=== PATIENT | female | born 1995 | race Hispanic/Latino ===

== ENCOUNTER 2024-03-26 21:23 | Emergency (ER) | payer MEDICAID ==
[~2024-03-26] VITALS: Ht 160 cm; Wt 83.0 kg
[2024-03-26] MEDS: acetaMINOPHEN 500 MG TABLET PO ONE (22:55)
--- NOTE | 2024-03-26 23:06 | ERN ---
ED Note History of Present Illness Stated Complaint: C/O PAIN TO RT ANKLE; X 2 WKS Chief Complaint: Ankle Problem Time Seen by MD: 21:32 Time Seen by Midlevel: 21:31 Dictation: The patient is a 29-year-old female with no known medical history who presents to the emergency department with complaints of right ankle pain onset two weeks ago after she stopped into a hole in the ground. Patient reports she was seen and was told she had an ankle fracture but has not follow up with Orthopedic. Patient reports she had a splint but removed it because he got dirty. Denies any recent re-injury. Patient does report being 26 weeks . Denies any abdominal pain, nausea or vomiting, vaginal bleeding or discharge. G3A2. Patient of Dr.Ruben Aponte. Allergies: Coded Allergies: No Known Allergies (Unverified Allergy, Unknown, 03/26/24) Past Medical History Past Medical History: No Pertinent History Surgical History: None RN Note Reviewed/Agreed w/PFSH: Yes Review of System Dictation Constitutional: Negative for fever,chills, and weight loss Eyes: Negative for injury, pain,redness, and discharge ENT: Negative for injury,pain or swelling Cardiovascular: Negative for chest pain, palpitations, and edema Respiratory: Negative for shortness of breath, cough, and wheezing, Abdomen/GI: Negative for abdominal pain, nausea, vomiting, diarrhea, and constipation Back: Negative for injury and pain : Negative for injury, bleeding and discharge MS/Extremity: Negative for injury and deformity positive for right ankle pain Skin: Negative for rash, and discoloration Neuro: Negative for headache, weakness, numbness, tingling, and seizure Psych: Negative for suicide ideation, homicidal ideation, and hallucinations Initial Vital Sign VS Vital Signs Date Time Temp Pulse Resp B/P (MAP) Pulse Ox O2 Delivery O2 Flow Rate FiO2 03/26/24 21:27 99.1 91 20 121/73 Room Air 03/26/24 22:56 98 0 21 Physical Exam Dictation Vital Signs reviewed General Appearance: Alert, oriented x 3, no acute distress, well developed, nourished. Head and Face: non-traumatic. Eyes: PERRL, pink conjunctivas, eyelid no trauma, anterior chamber with arcus senilis. Ears: Pinnas intact and no signs of trauma or erythema ear canals clear and no discharge TM no erythema Nose: No discharge, no bleeding. Oropharynx: Mouth normal, tongue pink. pharynx clear,no erythema, tonsils no exudates, no abscesses noted, mucous membrane moist Neck: Supple, non-tender, no thyromegaly, no masses, no JVD, no bruits Breast:Deferred Chest:No tenderness, no crepitus, no paradoxical movement, no retractions Lungs:Clear, well-ventilated, symmetric, no rales, no wheezing, no rhonchi, no stridor, good breath sounds bilaterally Heart: Regular rate, regular rhythm, no murmur, no gallops Vascular: Dorsalis pedis 3+ bilaterally posterior tibialis 3+ bilaterally Abdomen: Soft, positive bowel sounds, nondistended, no guarding, nontender, no rebound, no masses no hepatomegaly, no splenomegaly, no Palomo's sign, no hernias. Rectal: Deferred Genital: Deferred Neurological: Normal speech, motor function intact, sensory function intact Musculoskeletal: Neck nontender, full range of motion, back nontender, full range of motion, Extremities: nontender, full range of motion , right ankle tenderness, mild swelling, cap refill less than 2 seconds, no deformity Skin: Color pink, dry, no turgor, no rash, no lacerations, no abrasions, no contusions. Lymphatic: Deferred Results (Laboratory/Radiology) Laboratory/Radiology REASON: pain, swelling ORDERING PHYSICIAN: TANA BERTRAND PROCEDURE: [id number] - ANKLE COMP 3VWS RT ANKLE COMP 3VWS RT HISTORY: Pain and swelling COMPARISON: None TECHNIQUE: 3 images of right ankle were obtained. FINDINGS: Nondisplaced fracture is seen involving the distal fibula. Soft tissue swelling is seen. No dislocation is seen. IMPRESSION: 1. Findings as described above. Labs Reviewed?: Yes ED Course ED Course Orders Procedure Category Date Status Time Ankle Comp 3vws Rt RAD 03/26/24 Resulted 21:46 Acetaminophen 500mg PHA 03/26/24 Complete Tab (Tylenol 500mg T 22:00 *Nursing CPOE 03/26/24 Transmitted Communication: 21:56 Posterior Ankle Splint [email or web address] 03/26/24 In Process 23:42 Current Medications Medications (Trade) Dose Ordered Sig/Ambrosio Route PRN Reason Start Time Stop Time Status Last Admin Dose Admin Acetaminophen (TYLenol 500MG TAB) 1,000 mg ONCE ONCE PO 03/26/24 22:00 03/26/24 22:01 DC 03/26/24 22:55 Vital Signs Date Time Temp Pulse Resp B/P (MAP) Pulse Ox O2 Delivery O2 Flow Rate FiO2 03/26/24 22:56 84 18 126/84 98 Room Air* 0 21 03/26/24 21:27 99.1 91 20 121/73 Room Air Medical Decision Making MDM The patient is a 29-year-old female with no known medical history who presents to the emergency department with complaints of right ankle pain onset two weeks ago after she stopped into a hole in the ground. Patient reports she was seen and was told she had an ankle fracture but has not follow up with Orthopedic. Patient reports she had a splint but removed it because he got dirty. Denies any recent re-injury. Patient does report being 26 weeks . Denies any abdominal pain, nausea or vomiting, vaginal bleeding or discharge. G3A2. Patient of Dr.Ruben Aponte. Ankle x-ray showed distal nondisplaced fibular fracture. Patient will be splinted and instructed to follow up with Orthopedic. Foot continues neurovascular intact Patient denies any OB complaints. Discussed with the patient the possibility of going to L and D for observation. At this time patient refuses to go to L&D. FTH 156 Differential diagnosis: Ankle fracture, ankle sprain, ankle contusion Need for hospitalization: Patient does not meet criteria for hospitalization. There are no social concerns with this patient. DX & DISP Disposition: Discharge Departure Impression: Primary Impression: Fracture of fibula, distal, closed Additional Impression: Condition: Stable Additional Instructions: Please follow up with Orthopedic as soon as possible. Please follow up with your OBGYN. If symptoms worsen please return to ER. FOLLOW-UP WITH PRIMARY CARE PROVIDER IN 1 TO 2 DAYS. TAKE MEDICATIONS DIRECTED HERE IN THE EMERGENCY ROOM. OKAY TO CONTINUE HOME MEDICATIONS UNLESS OTHERWISE DISCUSSED DURING YOUR VISIT IN THE EMERGENCY ROOM TODAY. RETURN TO YOUR NEAREST EMERGENCY ROOM IF SYMPTOMS WORSEN OR IF THERE IS NO IMPROVEMENT. CALL 911 IF YOU NEED IMMEDIATE ASSISTANCE. TAKE TYLENOL [id number] NEEDED AND IF NO CONTRAINDICATIONS ARE PRESENT. INCREASE ORAL HYDRATION. A WOUND CULTURE OR URINE CULTURE WAS ORDERED HERE IN THE EMERGENCY ROOM DEPARTMENT PLEASE FOLLOW-UP WITH PRIMARY CARE PROVIDER AND ADVISE THEM TO GET REPEAT PORTS FROM OUR FACILITY. IF YOU HAD ANY HELEN WRAP/SPLINTS THAT WERE APPLIED HERE, PLEA SE DO NOT REMOVE THEM UNTIL YOU SEE YOUR PRIMARY CARE OR SPECIALTY. Referrals: SELF,REFERRAL (PCP) LUPE FOLEY MD Time of Disposition: 00:14 I have reviewed the case, and I agree with, Diagnosis and Plan TANA BERTRAND [facility] Mar 26, 2024 23:06
--- NOTE | 2024-03-26 23:17 | NUR ---
Note [email or web address] in EDM - 03/26/24 at 2319 by [email or web address] SOC NEUROTELE EVALUATED COMPLETED, PER SOC ITS POSSIBLE SYMPTOMS WERE RELATED TO HYPERTENSIVE EPISODE. SOC STATES THEY WILL MAKE A NOTE ON THE CHART WITH FURTHER RECOMMENDATIONS, BUT NO DEFECITS NOTED AT THIS TIME
[2024-03-26 23:32] VITALS: TEMP 98.6
--- NOTE | 2024-03-26 23:38 | HMCIMG ---
ANKLE COMP 3VWS RT HISTORY: Pain and swelling COMPARISON: None TECHNIQUE: 3 images of right ankle were obtained. FINDINGS: Nondisplaced fracture is seen involving the distal fibula. Soft tissue swelling is seen. No dislocation is seen. IMPRESSION: 1. Findings as described above.
--- NOTE | 2024-03-27 00:10 | NUR ---
SHORT POSTERIOR SPLINT TO RIGHT ANKLE.
--- NOTE | 2024-03-27 00:15 | NUR ---
HEART TONES 156.
[2024-03-27 00:16] VITALS: BP 119/65; PULSE 88; RESP 18; TEMP 98.7; O2SAT 100
== END 2024-03-27 00:29 | disposition home or self-care (01) ==
LOC: EDH 21:23
DX: O9A.212 Injury, poisoning and certain other consequences of external causes complicating pregnancy, second trimester (principal); S82.831A Other fracture of upper and lower end of right fibula, initial encounter for closed fracture; Z3A.26 26 weeks gestation of pregnancy; W17.2XXA Fall into hole, initial encounter; Y93.89 Activity, other specified; Y92.89 Other specified places as the place of occurrence of the external cause; Y99.8 Other external cause status
CPT/HCPCS: 29515; 73610; 99283